=== PATIENT | female | born 1965 ===

== ENCOUNTER 2019-08-19 11:30 | Inpatient (IN) | payer OTHER ==
[~2019-08-19] VITALS: Ht 162.6 cm; Wt 73.5 kg
[2019-08-19] MEDS ORDERED: CLONAZEPAM0.5 MG PO (13:02)
[2019-08-19] MEDS ORDERED: SEROQ PO (13:02)
[2019-08-19] MEDS ORDERED: PAXIL40 MG PO (13:03)
[2019-08-19] MEDS ORDERED: MELATONIN PO (13:03)
[2019-08-19] MEDS ORDERED: CITROCAL PO (13:04)
[2019-08-19] MEDS ORDERED: ZINC LOZENGES1 EACH PO (13:05)
[2019-08-25] MEDS ORDERED: VITAMIN D2000 UNI1 PO (09:16)
[2019-08-25] MEDS ORDERED: CITRACAL + D M1 EACH PO (09:17)
[2019-08-25] MEDS ORDERED: VITAMIN D35000 UNI2 PO (09:17)
[2019-08-25] MEDS ORDERED: MELATONIN3 M1 PO (09:18)
[2019-08-25] MEDS ORDERED: QUETIAPINE FUM100 MG PO (09:19)
== END 2019-08-27 15:58 | disposition home or self-care (01) | DRG 743 ==
LOC: O/R 08-25 05:25 → SURG 08-25 05:25 → O/R 08-25 09:30 → SURG 08-25 18:34
PROVIDERS: ADMIT Obstetrics & Gynecology Gynecologic Oncology
PROC: 0UT70ZZ Resection of Bilateral Fallopian Tubes, Open Approach (ICD-10-PCS; 2019-08-25)
PROC: 0UT20ZZ Resection of Bilateral Ovaries, Open Approach (ICD-10-PCS; 2019-08-25)
PROC: 0UT90ZZ Resection of Uterus, Open Approach (ICD-10-PCS; principal; 2019-08-25 09:30)
DX: D25.1 Intramural leiomyoma of uterus (principal); D25.2 Subserosal leiomyoma of uterus; N72 Inflammatory disease of cervix uteri; N83.312 Acquired atrophy of left ovary; N83.311 Acquired atrophy of right ovary